=== PATIENT | male | born 1995 | race Caucasian/White ===

== ENCOUNTER 2021-10-26 02:36 | Emergency (ER) | payer SELFPAY ==
[2021-10-26 02:42] VITALS: BP 148/95; PULSE 110; RESP 20; O2SAT 98; BMI 25.0
[2021-10-26 02:44] VITALS: BP 142/92; PULSE 90; O2SAT 97
--- NOTE | 2021-10-26 05:21 | ED.ALCOHOL ---
HPI - Alcohol General Chief Complaint: ETOH/Substance Use Stated Complaint: ETOH Time Seen by Provider: 10/26/21 05:21 Source: patient, EMS and police Mode of arrival: EMS Limitations: no limitations History of Present Illness HPI narrative: 26-year-old male brought in by police and EMS for evaluation after alcohol intoxication and smoking marijuana. Patient is walking with EMS to the emergency room declined any history of trauma or injury, patient stated that he drank alcohol unable to tell us how much, and he smoked weed otherwise denies any use of other drugs. Patient declined HI or SI, patient has been calm and cooperative with the staff just wanted to sleep. Related Data Allergies Allergy/AdvReac Type Severity Reaction Status Date / Time No Known Allergies Allergy Verified 10/26/21 02:44 Review of Systems Review of Systems: Yes Unobtainable due to mental status Physical Exam ED Vital Signs: Vital Signs - 24 hr 10/26/21 02:42 Pulse Rate 110 H Respiratory Rate 20 Blood Pressure 148/95 H Pulse Oximetry 98 Oxygen Delivery Method Room Air BMI result Body Mass Index 25.0 Vital signs have been reviewed as appeared to be correct. Blood pressure normal. Heart rate normal. Respiration rate normal. Temperature normal. Oxygen saturation normal. Appearance: Alert. Alcohol on breath. In Head: Normal external exam. Normocephalic. Atraumatic. No Huizar signs noted. No raccoon eyes noted Eyes: PERRLA. EOMI. Conjunctiva and sclera normal. Eyelids normal. ENT: TM's Normal. Pharynx normal. Uvula midline. Moist mucous membranes. No trismus noted. No drooling noted. No muffled voice noted. Neck: Normal inspection. Neck supple. FROM. No adenopathy. Thyroid Normal. No meningeal signs. No neck mass noted. CVS: Normal heart rate and rhythm. Heart sound normal. No murmurs noted. Pulses normal throughout. Respiratory: No respiratory distress. Painless inspiration. Breath sounds normal. No wheezes/rales/rhonchi noted. Chest nontender. No accessory muscle usage noted or decreased air movement noted. Abdomen: Soft and nontender. Bowel sounds normal in all 4 quadrants. No distention noted. No organomegaly noted. No visible injury noted. Back: No CVA tenderness. Full range of motion noted. Skin: Skin warm and dry. Normal skin color. Normal skin turgor. No rashes/lesions/lacerations noted. Extremities: No lower extremity edema. Extremities exhibit normal range of motion. Extremities nontender. Neuro: Alert, alcohol on breath.. Cranial nerve exam: II-XII are grossly intact No motor deficit. No sensory deficit. Reflexes normal. Course Course Course Narrative: Will re-evaluate when patient is more sober. Discharge Plan Discharge Clinical Impression: Alcoholic intoxication Patient Disposition: Home, Self-Care Instructions: Alcohol Intoxication (ED)
--- NOTE | 2021-10-26 07:00 | PC.NURSE ---
Report given to RAYMOND Reese
[2021-10-26 07:34] VITALS: BP 140/86; PULSE 87; RESP 16; TEMP 36.7; O2SAT 97
== END 2021-10-26 09:50 | disposition home or self-care (01) ==
PROVIDERS: Emergency Provider Emergency Medicine Emergency Medical Services
DX: F10.129 Alcohol abuse with intoxication, unspecified (principal); Y90.9 Presence of alcohol in blood, level not specified
CPT/HCPCS: 99283